=== PATIENT | female | born 1940 | race Caucasian/White ===

== ENCOUNTER 2018-03-08 06:39 | Day surgery (SDC) | payer OTHER ==
[~2018-03-08 06:39] MED LIST: COZAAR50 MG PO; FAMOTIDINE20 MG/2 M1 PO; FENOFIBRATE160 MG PO; INTEGRA F CAPS1 EACH PO; INTESTINEX680 MG PO; PERCOCET 5/3251 TAB PO; PRAVASTATIN SOD20 MG PO; PRILOSEC10 MG PO; SYNTHROID50 MCG PO; TOPROL XL50 M1 PO; [UNRECOGNIZED DRUG - OTHER] PO
== END 2018-03-08 11:10 | disposition home or self-care (01) ==
LOC: AMB-ENDOS 06:39
DX: K57.30 Diverticulosis of large intestine without perforation or abscess without bleeding (principal); K62.89 Other specified diseases of anus and rectum; Z12.11 Encounter for screening for malignant neoplasm of colon

== ENCOUNTER 2018-06-13 08:21 | Inpatient (IN) | payer OTHER ==
[~2018-06-13] VITALS: Ht 160 cm; Wt 62.1 kg
[2018-06-23] MEDS ORDERED: INTESTINEX680 M1 PO (08:29)
[2018-06-23] MEDS ORDERED: NEURONTIN300 MG PO (08:29)
[2018-06-23] MEDS ORDERED: OMEPRAZOLE20 MG PO (08:29)
[2018-06-23] MEDS ORDERED: TYLENOL ARTHRI650 MG PO (08:29)
== END 2018-06-23 11:24 | disposition home or self-care (01) | DRG 330 ==
LOC: ER 08:21 → SURH 12:40
PROVIDERS: Surgery; Urology
PROC: 0DJD8ZZ Inspection of Lower Intestinal Tract, Via Natural or Artificial Opening Endoscopic (ICD-10-PCS; 2018-06-15)
PROC: 0T788DZ Dilation of Bilateral Ureters with Intraluminal Device, Via Natural or Artificial Opening Endoscopic (ICD-10-PCS; 2018-06-15)
PROC: 30233R1 Transfusion of Nonautologous Platelets into Peripheral Vein, Percutaneous Approach (ICD-10-PCS; 2018-06-15)
PROC: 0DTE0ZZ Resection of Large Intestine, Open Approach (ICD-10-PCS; principal; 2018-06-15 12:00)
PROC: 0DQE0ZZ Repair Large Intestine, Open Approach (ICD-10-PCS; 2018-06-15 12:00)
PROC: 02HV33Z Insertion of Infusion Device into Superior Vena Cava, Percutaneous Approach (ICD-10-PCS; 2018-06-16)
PROC: 3E0436Z Introduction of Nutritional Substance into Central Vein, Percutaneous Approach (ICD-10-PCS; 2018-06-17)
PROC: 30233N1 Transfusion of Nonautologous Red Blood Cells into Peripheral Vein, Percutaneous Approach (ICD-10-PCS; 2018-06-20)
DX: C18.7 Malignant neoplasm of sigmoid colon (principal); D62 Acute posthemorrhagic anemia; C78.6 Secondary malignant neoplasm of retroperitoneum and peritoneum; C79.62 Secondary malignant neoplasm of left ovary; Z43.3 Encounter for attention to colostomy; R63.0 Anorexia; I25.10 Atherosclerotic heart disease of native coronary artery without angina pectoris; I10 Essential (primary) hypertension; D69.59 Other secondary thrombocytopenia; Z98.61 Coronary angioplasty status; D63.0 Anemia in neoplastic disease; R33.8 Other retention of urine; Z92.21 Personal history of antineoplastic chemotherapy; E03.8 Other specified hypothyroidism